=== PATIENT | female | born 1985 ===

== ENCOUNTER 2016-07-29 09:50 | Emergency (ER) | payer MEDICAID ==
[2016-07-29 09:53] VITALS: RESP 18; BMI 27.1
--- NOTE | 2016-07-29 10:31 | ED PDOC ---
HPI: Psych/Substance Abuse Time Seen by Provider: 07/29/16 09:55 Chief Complaint (Nursing): Psychiatric Evaluation Chief Complaint (Provider): Psychiatric Evaluation History Per: Patient History/Exam Limitations: no limitations Onset/Duration Of Symptoms: Days Current Symptoms Are (Timing): Still Present Additional Complaint(s): 31 y/o female with a past medical history of depression and bipolar disorder presents to the emergency department via EMS after calling 911 herself with a complaint of feeling depressed. Associated with dizziness. Patient states she had been feeling depressed gradually throughout the course of a month and does not want to live in a depressed state anymore. Reports being compliant with Abilify and Trazodone medications. Denies active triggers of depression, headache, chest pain, nausea, vomiting, or diarrhea. Of note, patient works as a small business banking officer. PMD: Dr. Hernadez Past Medical History Reviewed: Historical Data, Nursing Documentation, Vital Signs Vital Signs: Last Vital Signs Temp 98.2 F 07/29/16 09:53 Pulse 80 07/29/16 09:53 Resp 18 07/29/16 09:53 BP 133/82 07/29/16 09:53 Pulse Ox 98 07/29/16 09:53 - Medical History PMH: Back Problems, Bipolar Disorder, Depression, Chronic Pain - Surgical History Other surgeries: Breast reduction - Family History Family History: States: Unknown Family Hx - Living Arrangements Living Arrangements: With Family (Sister; not and no children) - Social History Current smoker - smoking cessation education provided: Yes Alcohol: None Drugs: Denies - Immunization History Hx Tetanus Toxoid Vaccination: No Hx Influenza Vaccination: No Hx Pneumococcal Vaccination: No - Home Medications Home Medications: Ambulatory Orders Medication Instructions Recorded traZODone [Desyrel] 100 mg PO HS 10/13/15 diaZEpam [Valium] 5 mg PO TID #21 tab 10/26/15 Benzonatate [Tessalon Perles] 100 mg PO TID PRN #20 sgl 03/22/16 DiphenhydrAMINE [Benadryl] 25 mg PO Q4H PRN #15 cap 05/19/16 Cyclobenzaprine [Cyclobenzaprine 10 mg PO Q12 PRN #10 tab 05/24/16 HCl] Naproxen [Naprosyn] 1 tab PO BID PRN #25 tab 05/24/16 - Allergies Allergies/Adverse Reactions: Allergies Allergy/AdvReac Type Severity Reaction Status Date / Time Penicillins Allergy Verified 05/24/16 14:34 Review of Systems ROS Statement: Except As Marked, All Systems Reviewed And Found Negative Cardiovascular: Negative for: Chest Pain Gastrointestinal: Negative for: Nausea, Vomiting, Diarrhea Neurological: Positive for: Dizziness. Negative for: Headache Psych: Positive for: Depression Physical Exam - Reviewed Nursing Documentation Reviewed: Yes Vital Signs Reviewed: Yes - Physical Exam Appears: Positive for: Well, Non-toxic, No Acute Distress Head Exam: Positive for: ATRAUMATIC, NORMOCEPHALIC Skin: Positive for: Normal Color, Warm, Dry Eye Exam: Positive for: Normal appearance. Negative for: Conjunctival injection ENT: Positive for: Normal ENT Inspection. Negative for: Pharyngeal Erythema Neck: Positive for: Normal, Supple Cardiovascular/Chest: Positive for: Regular Rate, Rhythm. Negative for: Murmur Respiratory: Positive for: Normal Breath Sounds. Negative for: Accessory Muscle Use, Respiratory Distress Gastrointestinal/Abdominal: Positive for: Normal Exam, Soft. Negative for: Tenderness Back: Positive for: Normal Inspection. Negative for: L CVA Tenderness, R CVA Tenderness Extremity: Positive for: Normal ROM. Negative for: Pedal Edema Neurologic/Psych: Positive for: Alert, Oriented - Laboratory Results Result Diagrams: 07/29/16 12:25 07/29/16 12:25 - ECG O2 Sat by Pulse Oximetry: 98 (RA) Pulse Ox Interpretation: Normal Medical Decision Making Medical Decision Making: Time: 9:55 Initial impression: Bipolar disorder and depression Initial plan: --Crisis evaluation as ordered --Revaluation Time: 12:55 Chest X-ray FINDINGS: LUNGS: No focal consolidation. Please note that chest x-ray has limited sensitivity for the detection of pulmonary masses. PLEURA: No significant pleural effusion identified. No definite pneumothorax . CARDIOVASCULAR: The cardiomediastinal silhouette appears within normal limits of size. OSSEOUS STRUCTURES: No acute osseous abnormality identified. VISUALIZED UPPER ABDOMEN: Unremarkable. OTHER FINDINGS: None. IMPRESSION: No focal consolidation, significant pleural effusion, or definite pneumothorax identified. Scribe Attestation: Documented by Tracey Jordan, acting as a scribe for Teresa Starr MD. Provider Scribe Attestation: All medical record entries made by the Scribe were at my direction and personally dictated by me. I have reviewed the chart and agree that the record accurately reflects my personal performance of the history, physical exam, medical decision making, and the department course for this patient. I have also personally directed, reviewed, and agree with the discharge instructions and disposition. 2.00p - patient seen by crisis. initially wanted voluntary admission. later changed her mind. Cleared by Dr. Gilmore Disposition - Clinical Impression Clinical Impression: Depression - Patient ED Disposition Is Patient to be Admitted: No Doctor Will See Patient In The: Office Counseled Patient/Family Regarding: Diagnosis, Need For Followup - Disposition Referrals: Sumit Woodall MD [Family Provider] - Disposition: Routine/Home Disposition Time: 14:00 Condition: STABLE Instructions: Depression (ED) - POA Present On Arrival: None
--- NOTE | 2016-07-29 12:56 | RAD ---
HISTORY: med clearance COMPARISON: None available. TECHNIQUE: Chest, one view. FINDINGS: LUNGS: No focal consolidation. Please note that chest x-ray has limited sensitivity for the detection of pulmonary masses. PLEURA: No significant pleural effusion identified. No definite pneumothorax . CARDIOVASCULAR: The cardiomediastinal silhouette appears within normal limits of size. OSSEOUS STRUCTURES: No acute osseous abnormality identified. VISUALIZED UPPER ABDOMEN: Unremarkable. OTHER FINDINGS: None. IMPRESSION: No focal consolidation, significant pleural effusion, or definite pneumothorax identified.
[2016-07-29 13:12] LABS: BASO % 0.5 % (0.0-2.0); EOS # 0.1 K/uL (0.0-0.7); EOS % 0.8 % (0.0-4.0); HEMATOCRIT 42.3 % (34.0-47.0); LYMPH # 2.2 K/uL (1.0-4.3); LYMPH % 23.4 % (20.0-40.0); MEAN CELL VOLUME 90.4 fl (81.0-99.0); MEAN CORPUSCULAR HEMOGLOBIN 30.7 pg (27.0-31.0); MEAN CORPUSCULAR HGB CONC 33.9 g/dL (33.0-37.0); MEAN PLATELET VOLUME 8.3 fl (7.2-11.7); MONO # 0.6 K/uL (0.0-0.8); MONO % 6.4 % (0.0-10.0); NEUT # 6.4 K/uL (1.8-7.0); NEUT % 68.9 % (50.0-75.0); NRBC % 0.1 % (0.0-0.0); RED CELL DISTRIBUTION WIDTH 12.5 % (11.5-14.5); WHITE BLOOD COUNT 9.3 K/uL (4.8-10.8)
[2016-07-29 13:14] VITALS: BP 145/94; PULSE 88; TEMP 98.4
[2016-07-29 13:15] LABS: ALCOHOL SERUM < 10 mg/dl (0-10); BLOOD UREA NITROGEN 6 mg/dl (7-17); CALCIUM 9.5 mg/dL (8.4-10.2); CARBON DIOXIDE 25 mmol/L (22-30); CHLORIDE 107 mmol/L (98-107); GFR AFRICAN-AMERICAN > 60; GLUCOSE,RANDOM 86 mg/dL (65-105); SODIUM 142 mmol/l (132-148)
[2016-07-29 13:21] VITALS: O2SAT 98
== END 2016-07-29 14:35 | disposition home or self-care (01) ==
LOC: H.ER 09:50
DX: F31.9 Bipolar disorder, unspecified (principal); F17.200 Nicotine dependence, unspecified, uncomplicated; G89.29 Other chronic pain; Z88.0 Allergy status to penicillin; R42 Dizziness and giddiness
CPT/HCPCS: 71010; 80048; 81025; 85025; 99284; G0480

== ENCOUNTER 2018-06-11 14:49 | Emergency (ER) | payer MEDICAID, OTHER ==
[2018-06-11 14:50] VITALS: BMI 26.7
[2018-06-11 15:17] VITALS: BP 101/55; PULSE 74; RESP 18; TEMP 98.6; O2SAT 99
--- NOTE | 2018-06-11 15:52 | ED PDOC ---
HPI: Headache Time Seen by Provider: 06/11/18 15:21 Chief Complaint (Nursing): Headache Chief Complaint (Provider): Headache, abdominal pain History Per: Patient History/Exam Limitations: no limitations Onset/Duration Of Symptoms: Days (10), Gradual Current Symptoms Are (Timing): Still Present Quality: "Pain" Associated Symptoms: Photophobia, Nausea, Vomiting (x 2). denies: Blurred Vision, Extremity Weakness Additional History Per: Patient Additional Complaint(s): 32yo female, otherwise well, comes to ER with complaints of gradual onset headache, epigastric abdominal pain and 2x episodes of vomiting for the past 10 days. She states yesterday she had a syncopal episode and was found by her sister. Patient has been taking ibuprofen for her symptoms with minimal relief. She reports associated photophobia, nausea, and a tactile fever. Patient states this is not the worst headache in her life, and denies any thunderclap sensation at onset of headache. Otherwise, no neck pain, chest pain, shortness of breath, diarrhea, urinary symptoms, back pain. She denies history of migraines; also denies taking hormonal contraceptives. PMD: Dr. Woodall Past Medical History Reviewed: Historical Data, Nursing Documentation, Vital Signs Vital Signs: Last Vital Signs Temp 98.6 F 06/11/18 15:15 Pulse 74 06/11/18 15:15 Resp 18 06/11/18 15:15 BP 101/55 L 06/11/18 15:15 Pulse Ox 99 06/11/18 15:15 - Medical History PMH: Arthritis, Back Problems, Depression, Chronic Pain Denies: Bipolar Disorder (as per patient), Diabetes, Hepatitis, HIV, HTN, Seizures, Sexually Transmitted Disease - Surgical History Surgical History: No Surg Hx - Family History Family History: States: Unknown Family Hx - Immunization History Hx Tetanus Toxoid Vaccination: No Hx Influenza Vaccination: No Hx Pneumococcal Vaccination: No - Home Medications Home Medications: Ambulatory Orders Medication Instructions Recorded Lidocaine 5% [Lidoderm] 1 patch TP DAILY #30 patch 02/02/18 Naproxen [Naprosyn] 1 tab PO BID PRN #25 tab 02/02/18 traZODone [Desyrel] 1 tab PO DAILY 02/02/18 Aspirin/Acetaminophen/Caffeine 1 each PO TID PRN #20 tablet 06/11/18 [Excedrin Migraine Caplet] Famotidine [Pepcid] 20 mg PO DAILY #14 tab 06/11/18 - Allergies Allergies/Adverse Reactions: Allergies Allergy/AdvReac Type Severity Reaction Status Date / Time Penicillins Allergy ANGIOEDEMA Verified 06/11/18 15:15 Review of Systems ROS Statement: Except As Marked, All Systems Reviewed And Found Negative Constitutional: Negative for: Fever, Chills Eyes: Positive for: Other (photophobia) Cardiovascular: Negative for: Chest Pain Respiratory: Negative for: Shortness of Breath Gastrointestinal: Positive for: Nausea, Vomiting, Abdominal Pain. Negative for: Diarrhea, Constipation Genitourinary Female: Negative for: Dysuria, Frequency, Hematuria Musculoskeletal: Negative for: Back Pain Neurological: Positive for: Headache. Negative for: Weakness, Numbness Physical Exam - Reviewed Nursing Documentation Reviewed: Yes Vital Signs Reviewed: Yes - Physical Exam Appears: Positive for: Non-toxic, No Acute Distress Head Exam: Positive for: ATRAUMATIC, NORMOCEPHALIC. Negative for: NORMAL INSPECTION (+ right temporal tenderness) Skin: Positive for: Normal Color, Warm, Dry. Negative for: Rash Eye Exam: Positive for: EOMI, PERRL Neck: Positive for: Normal, Painless ROM, Supple Cardiovascular/Chest: Positive for: Regular Rate, Rhythm. Negative for: Murmur, Tachycardia Respiratory: Positive for: Normal Breath Sounds. Negative for: Respiratory Distress Pulses-Radial (L): 2+ Pulses-Radial (R): 2+ Gastrointestinal/Abdominal: Positive for: Soft, Tenderness (epigastric, suprapubic and right upper quadrant tenderness). Negative for: Mass, Guarding, Rebound Back: Positive for: Normal Inspection. Negative for: L CVA Tenderness, R CVA Tenderness, Vertebral Tenderness Extremity: Positive for: Normal ROM. Negative for: Pedal Edema, Deformity Neurological/Psych: Positive for: Awake, Alert, Normal Tone, Symmetric/Intact Strength (5/5 strength of all extremities), Oriented (x 3). Negative for: Motor/Sensory Deficits - Laboratory Results Result Diagrams: 06/11/18 15:46 06/11/18 15:46 - ECG O2 Sat by Pulse Oximetry: 99 (RA) Pulse Ox Interpretation: Normal - Progress Re-evaluation Time: 18:30 Condition: Re-examined, Improved Medical Decision Making Medical Decision Making: Impression: Headache, abdominal pain Differential: Abdominal migraines, galbladder disease, gastritis, tension he adache; r/o brain mass Plan: -- Labs -- IV Fluids -- Pepcid 20mg IV -- Toradol 30mg IV -- Reglan 10mg IV -- CT Head w/o contrast -- US Galbladder 1822 CT Head FINDINGS: HEMORRHAGE: No intracranial hemorrhage. BRAIN: Sharpe-white matter differentiation is preserved. There is no mass, mass effect or abnormal extra-axial fluid collection. There is no territorial infarction. The midline sagittal structures are normal. VENTRICLES: The ventricles are normal in size, shape and configuration. CALVARIUM: There is no calvarial fracture or extracranial soft tissue swelling. PARANASAL SINUSES: Predominantly clear. MASTOID AIR CELLS: Predominantly clear. OTHER FINDINGS: None. IMPRESSION: No acute intracranial abnormality. US Abdomen FINDINGS: LIVER: Measures 15.0 cm in length. Normal echogenicity of the liver parenchyma. No mass. No intrahepatic bile duct dilatation. GALLBLADDER: There are no gallstones, wall thickening or pericholecystic fluid. The sonographic Justin's sign is negative. COMMON BILE DUCT: Measures 3.7 mm. No stones. No dilatation. PANCREAS: Unremarkable as visualized. No mass. No ductal dilatation. RIGHT KIDNEY: Measures 10.7 cm in length. Normal echogenicity. No calculus, mass, or hydronephrosis. AORTA: No aneurysmal dilatation. IVC: Unremarkable. OTHER FINDINGS: None . IMPRESSION: No cholelithiasis or biliary dilatation. 1846 Patient reports feeling much better, and states she has improvement in abdominal pain and headache. Patient agreeable with plan for discharge home, and will follow up with neurologist as well as PMD. ------- Scribe Attestation: Documented by Abby Boss acting as a scribe for Joaquin Gonzalez MD Provider Scribe Attestation: All medical record entries made by the Scribe were at my direction and personally dictated by me. I have reviewed the chart and agree that the record accurately reflects my personal performance of the history, physical exam, medical decision making, and the department course for this patient. I have also personally directed, reviewed, and agree with the discharge instructions and disposition. Disposition - Clinical Impression Clinical Impression: Headache, Abdominal pain - Patient ED Disposition Is Patient to be Admitted: No Counseled Patient/Family Regarding: Studies Performed, Diagnosis, Need For Followup - Disposition Referrals: Sumit Woodall MD [Primary Care Provider] - Tom Sherman MD [Staff Provider] - Disposition: Routine/Home Disposition Time: 18:48 Condition: IMPROVED Additional Instructions: GEORGE NEFF, thank you for letting us take care of you today. Your provider was Joaquin Gonzalez MD and you were treated for HEADACHE,ABD PAIN. The emergency medical care you received today was directed at your acute symptoms. If you were prescribed any medication, please fill it and take as directed. It may take several days for your symptoms to resolve. Return to the Emergency Department if your symptoms worsen, do not improve, or if you have any other problems. Please contact your doctor or call one of the physicians/clinics you have been referred to that are listed on the Patient Visit Information form that is included in your discharge packet. Bring any paperwork you were given at discharge with you along with any medications you are taking to your follow up visit. Our treatment cannot replace ongoing medical care by a primary care provider outside of the emergency department. Thank you for allowing the [facility] team to be part of your care today. If you had an X-Ray or CT scan: A Radiologist will review the ED reading if any change in treatment is needed we will contact you. Prescriptions: Aspirin/Acetaminophen/Caffeine [Excedrin Migraine Caplet] 1 each PO TID PRN #20 tablet PRN Reason: Headache Famotidine [Pepcid] 20 mg PO DAILY #14 tab Instructions: Headache, Adult, Stomach Ache and Stomach Upset Forms: [employer] (U[place])
[2018-06-11 15:57] LABS: BASO % 0.5 % (0.0-2.0); EOS # 0.1 K/uL (0.0-0.7); HEMOGLOBIN 13.7 g/dL (12.0-16.0); LYMPH # 2.7 K/uL (1.0-4.3); LYMPH % 40.7 % (20.0-40.0); MEAN CELL VOLUME 90.3 fl (81.0-99.0); MEAN CORPUSCULAR HEMOGLOBIN 30.6 pg (27.0-31.0); MEAN CORPUSCULAR HGB CONC 33.9 g/dL (33.0-37.0); MEAN PLATELET VOLUME 7.9 fl (7.2-11.7); MONO # 0.5 K/uL (0.0-0.8); MONO % 7.4 % (0.0-10.0); NEUT # 3.3 K/uL (1.8-7.0); NEUT % 50.4 % (50.0-75.0); NRBC % 0.1 % (0.0-0.0); RBC 4.47 Mil/uL (3.80-5.20); RED CELL DISTRIBUTION WIDTH 12.3 % (11.5-14.5); WHITE BLOOD COUNT 6.6 K/uL (4.8-10.8)
[2018-06-11 16:05] LABS: ALB/GLOB RATIO 1.3 (1.0-2.1); ALBUMIN 3.8 g/dL (3.5-5.0); ALT/SGPT 29 U/L (9-52); AST/SGOT 26 U/L (14-36); BLOOD UREA NITROGEN 8 mg/dl (7-17); GFR NON-AFRICAN AMERICAN > 60; LIPASE 123 U/L (23-300)
--- NOTE | 2018-06-11 17:06 | CT ---
Date of service: 06/11/2018 PROCEDURE: CT HEAD WITHOUT CONTRAST. HISTORY: Headache COMPARISON: None available. TECHNIQUE: Axial computed tomography images were obtained through the head/brain without intravenous contrast. Radiation dose: Total exam DLP = 772.29 mGy-cm. This CT exam was performed using one or more of the following dose reduction techniques: Automated exposure control, adjustment of the mA and/or kV according to patient size, and/or use of iterative reconstruction technique. FINDINGS: HEMORRHAGE: No intracranial hemorrhage. BRAIN: Sharpe-white matter differentiation is preserved. There is no mass, mass effect or abnormal extra-axial fluid collection. There is no territorial infarction. The midline sagittal structures are normal. VENTRICLES: The ventricles are normal in size, shape and configuration. CALVARIUM: There is no calvarial fracture or extracranial soft tissue swelling. PARANASAL SINUSES: Predominantly clear. MASTOID AIR CELLS: Predominantly clear. OTHER FINDINGS: None. IMPRESSION: No acute intracranial abnormality.
--- NOTE | 2018-06-11 17:35 | US ---
Date of service: 06/11/2018 HISTORY: RUQ epigastric pain COMPARISON: None. TECHNIQUE: Grayscale imaging was performed. FINDINGS: LIVER: Measures 15.0 cm in length. Normal echogenicity of the liver parenchyma. No mass. No intrahepatic bile duct dilatation. GALLBLADDER: There are no gallstones, wall thickening or pericholecystic fluid. The sonographic Justin's sign is negative. COMMON BILE DUCT: Measures 3.7 mm. No stones. No dilatation. PANCREAS: Unremarkable as visualized. No mass. No ductal dilatation. RIGHT KIDNEY: Measures 10.7 cm in length. Normal echogenicity. No calculus, mass, or hydronephrosis. AORTA: No aneurysmal dilatation. IVC: Unremarkable. OTHER FINDINGS: None . IMPRESSION: No cholelithiasis or biliary dilatation.
--- NOTE | 2018-06-12 11:11 | CARD ---
APPROVED REPORT Date of service: 06/11/2018 EKG Measurement Heart [id number] <Conclusion> Normal sinus rhythm with sinus arrhythmia Normal ECG
== END 2018-06-11 19:19 | disposition home or self-care (01) ==
LOC: H.ER 14:49
DX: R51 Headache (principal); R10.13 Epigastric pain; G89.29 Other chronic pain; Z88.0 Allergy status to penicillin
CPT/HCPCS: 70450; 76705; 80053; 81025; 83690; 85025; 87804; 93005; 96374; 96375; 99285; J1885; J2765